=== PATIENT | female | born 1975 | race Caucasian/White ===

== ENCOUNTER → 2021-01-01 08:46 | Outpatient (CLI) | payer OTHER, SELFPAY ==
--- NOTE | ~2021-01-01 | MR_ITS ---
EXAMINATION: MR knee RT wo con DATE: 01/01/2021 09:37 INDICATION: Right knee pain TECHNIQUE: Magnetic resonance imaging (MRI) of the right knee was performed without intravenous contr ast. Sequences included coronal PD-weighted FSE, coronal PD-weighted FS FSE, sagittal T2-weighted FS E, sagittal PD-weighted FS FSE and axial PD weighted fat saturated FSE. COMPARISON: None. FINDINGS: Medial compartment: At least partial thickness radial tear at the lateral aspect of the posterior horn of the medial meni scus which involves at least the one half to two thirds of the meniscal thickness. Deep chondral ulce ration involving greater than 50% the cartilage thickness with chondral surface regularity but withou t degenerative subchondral changes along the anterior weightbearing medial femoral condyle. Similar d eep chondral ulceration with minimal subarticular edema at the medial margin of the medial tibial dipika teau. Lateral compartment: Lateral meniscus is normal. Partial-thickness cartilage loss with smooth chondral surface and without degenerative subchondral changes along the posterior weightbearing lateral femoral condyle. Patellofemoral compartment: Partial-thickness cartilage loss throughout the patellofemoral compartment. There is deep chondral fi ssuring without degenerative subchondral changes at the patellar apical ridge and medial facet as wel l as at the trochlear groove and immediately adjacent medial and lateral trochlea. Ligaments and tendons: Anterior and posterior cruciate ligaments are normal. The medial collateral ligament and fibular andreia ateral ligament complex are normal. The extensor mechanism is normal. The visualized medial and later al hamstring tendons as well as the iliotibial band are normal. Fluid: Small right knee joint effusion. No loose osteochondral bodies identified. Mild synovitis within a 5. 9 x 2.3 x 2.6 cm Murray's cyst. There is an additional small deeper component of the Murray's cyst whic h extends medially across the posterior margin of the weightbearing medial femoral condyle. Osseous/other: Geographic red marrow reexpansion in the metaphyseal region of the distal femur and proximal tibia. N o fracture or pathologic marrow replacing process. Varicose veins along the posterior medial aspect o f the knee. IMPRESSION: 1. Radial tear near the posterior root of the medial meniscus. 2. Tricompartmental osteoarthritis, mild to moderate severity with moderate to high-grade chondromala adalberto in the medial compartment and mild with moderate grade chondromalacia in the lateral and patellof emoral compartments. 3. Small right knee joint effusion and moderate-sized Murray's cyst. Reviewed, dictated and finalized at location B. IMPRESSION: 1. Radial tear near the posterior root of the medial meniscus. 2. Tricompartmental osteoarthritis, mild to moderate severity with moderate to high-grade chondromalacia in the medial compartment and mild with moderate grad e chondromalacia in the lateral and patellofemoral compartments. 3. Small right knee joint effusion and moderate-sized Murray's cyst.
== END ==
PROVIDERS: PCP Internal Medicine; Visit Provider Internal Medicine
DX: M17.11 Unilateral primary osteoarthritis, right knee (principal); M25.461 Effusion, right knee; M71.21 Synovial cyst of popliteal space [Baker], right knee; S83.241A Other tear of medial meniscus, current injury, right knee, initial encounter; X58.XXXA Exposure to other specified factors, initial encounter
CPT/HCPCS: 73721

== ENCOUNTER 2021-05-15 13:36 | Outpatient (CLI) | payer OTHER, SELFPAY ==
--- NOTE | 2021-05-15 13:45 | ECG_ITS ---
Measurements Intervals [place] Rate: 82 P: 41 WA: 159 QRS: 20 QRSD: 87 T: 20 QT: 350 QTc: 409 Interpretive Statements SINUS RHYTHM BORDERLINE R WAVE PROGRESSION, ANTERIOR LEADS BASELINE ARTIFACT- I, II, III, AVR, AVL, AVF BORDERLINE ECG Electronically Signed On 05-15-2021 14:00:26 CDT by Jose Daniel Burnette D.O.
== END 2021-05-15 13:37 | disposition home or self-care (01) ==
PROVIDERS: PCP Internal Medicine; Visit Provider Orthopaedic Surgery
DX: I10 Essential (primary) hypertension (principal); Z01.818 Encounter for other preprocedural examination; R94.31 Abnormal electrocardiogram [ECG] [EKG]
CPT/HCPCS: 93005

== ENCOUNTER 2021-05-19 00:27 | Day surgery (SDC) | payer OTHER, SELFPAY ==
[2021-05-14 16:53] VITALS: BMI 39.4
--- NOTE | 2021-05-18 13:09 | PM.IMHP ---
H&P: HPI History of Present Illness Date/Time: 05/18/21 13:09Pt presents with Right knee pain that has been present since May 2020, after she slipped. She was placed on Meloxicam, which did not provide very much relief. She received an MRI which shows a medial meniscus tear and OA. She received a cortisone injection 02/05/21 which, she states, provided relief for approximately 3-4 days. She is alternating Tylenol/Ibuprofen for her pain. She was informed at her last visit that she may require a right knee arthroscopy. Involved knee: right Onset: gradual Location of pain: medial, anterior and inferior Character: throbbing and shooting Timing of pain: constant Exacerbated by: sitting, weight bearing, kneeling, squatting, stairs and prolonged activity Relieved by: rest and NSAIDs Associated symptoms: Reports swelling and stiffness History of occupational/recreational activity with repetitive motion: No History of prior knee injury: No Chief Complaint: RIGHT KNEE PAIN Review of Systems Review of Systems: All systems reviewed & are unremarkable except as noted in HPI and below PMFSH Past Medical History Medical History Wears glasses Surgical History Surgical History History of History of cholecystectomy Family History Family History Other Hypertension Social History Social History Smoking status: Never smoker Second hand tobacco smoke exposure: No Alcohol intake: current Alcohol use details: very rarely Substance use: never Substance use type: does not use Gender identity (if verbalized by the patient): Female Spiritual care concerns: No Meds Home Medications and Allergies Home Medications Medication Instructions Recorded Confirmed Type chlorhexidine gluconate 4 % 1 applic TOPICAL ONCE #237 ml 03/24/21 Rx topical liquid amlodipine-benazepril 1 cap PO DAILY 05/14/21 05/14/21 History etonogestrel [Nexplanon] 1 implant SUBDERMAL ONCE 05/14/21 05/14/21 History Allergies Allergy/AdvReac Type Severity Reaction Status Date / Time No Known Allergies Allergy Mild Verified 08/19/21 16:49 Exam Extrem: Right lower extremity: normal to inspection, full ROM, normal capillary refill, cyanosis and knee Details: normal to inspection, tenderness Location: of the medial joint line and of the lateral joint line, swelling, abnormal ROM Details: pain with active ROM during and pain with passive ROM during, knee ligament exam normal, Julianna's Test Details: positive medially and laterally and positive medially and crepitus; no abrasions, no lacerations and no ecchymosis Left lower extremity: normal to inspection, normal capillary refill, edema, knee Details: normal to inspection and normal ROM and foot Details: normal capillary refill, normal to inspection, vascular exam Details: dorsalis pedis pulse present, posterior tibial pulse present and normal capillary refill and motor-sensory exam light-touch normal Assessment and Plan Additional Plan VELVET IS HERE FOR F/U OF HER RIGHT KNE MEDIAL MENISCUS TEAR. THE INJECTION WE DID ON HER DID NOT HELP. SHE CONTINUES TO HAVE PAIN AND EXAM SHOWS CONSISTENCY WITH MEDIAL MENISCUS TEAR WELL. HISTORY, EXAM AND RADIOGRAPHS REVIEWED WITH THE PATIENT. REFERRING PHYSICIAN RECORDS AND IMAGES REVIEWED. CONDITION, NATURE, ETIOLOGY AND COURSE OF NATURAL HISTORY REVIEWED. CONSERVATIVE AND OPERATIVE TREATMENT OPTIONS REVIEWED WELL THE RISKS AND BENEFITS OF EACH. I REVIEWED HER MRI AGAIN WHICH SHOWS A MEDIAL MENISCUS ROOT TEAR AND SOME MILD DJD. RECOMMEND RIGHT KNEE SCOPE. DISCUSSED NONOPERATIVE AND OPERATIVE TREATMENT OPTIONS WITH THE PATIENT. THE PATIENT'S QUESTIONS WERE ANSWERED. THE PATIENT DESIRES OPERATIVE TREATMENT. DISCUSSED RYAN
--- NOTE | 2021-05-18 13:49 | WPDANESEPPF ---
Anes - Initial Pre Proc Eval Procedure: Operation Date: 05/19/21 10:30 Proposed Procedures p Right Knee Arthroscopy, Proceed As Indicated - Amarjit Maxwell MD Date/Time: 05/18/21 13:49 Surgeon: Amarjit Maxwell MD Pre Op Diagnosis: right knee medial meniscal tear Patient Data Age: 45 Gender: F Height: 1.63 m Weight: 104.33 kg Allergies Allergy/AdvReac Type Severity Reaction Status Date / Time No Known Allergies Allergy Mild Verified 05/19/21 08:52 Home Medications Medication Instructions Recorded Confirmed Type chlorhexidine gluconate 4 % 1 applic TOPICAL ONCE #237 ml 03/24/21 Rx topical liquid amlodipine-benazepril 1 cap PO DAILY 05/14/21 05/19/21 History etonogestrel [Nexplanon] 1 implant SUBDERMAL ONCE 05/14/21 05/19/21 History Patient hx anesthesia problems: none Family hx anesthesia problems: none PMFSH Past Medical History Medical History (Updated 05/18/21 @ 13:50 by Matt Earl MD) HTN (hypertension) Morbid obesity with BMI of 40.0-44.9, adult Wears glasses Surgical History Surgical History History of History of cholecystectomy Family History Family History Other Hypertension Social History Social History Smoking status: Never smoker Second hand tobacco smoke exposure: No Alcohol intake: current Alcohol use details: very rarely Substance use: never Substance use type: does not use Living arrangements: with family Gender identity (if verbalized by the patient): Female Spiritual care concerns: No Anes - Eval Final PreProcedure Day of Procedure 05/18/21 13:49 Patient weight: obese Heart: regular rate and rhythm Lungs: clear to auscultation and normal air movement Airway: Mallampati scale class II Neurological: alert and oriented Last oral intake: >/= 8 hours ASA classification: III Emergent: no Anesthetic plan: proceed Anesthesia type and monitoring: general LMA Informed Consent: The patient's anesthetic plan and its attendant risks and benefits were discussed with the patient/family/POA. Questions were solicited and answers provided to the satisfaction of the patient/family/POA.
[2021-05-19] VITALS (7 sets, daily range): BP systolic 113–140; BP diastolic 81–88; PULSE 80–88; RESP 18–20; TEMP 36.4–36.6; O2SAT 100
--- NOTE | 2021-05-19 07:23 | WPDHPUPDATE1 ---
History and Physical Update Update Date/Time: 05/19/21 07:23 History and Physical has been reviewed, including an updated exam of the patient. There are NO changes in the patient's condition. Risks, benefits, and alternatives have been discussed and questions answered. Patient agrees to proceed with procedure.
[2021-05-19] MEDS: ACETAMINOPHEN 500 MG TABLET 1000 MG PO (09:02)
[2021-05-19] MEDS: CELECOXIB 200 MG CAPSULE PO (09:02)
[2021-05-19] MEDS: LACTATED RINGERS 1,000 ML 30 ML IV CONT ×2 (09:53→11:47)
[2021-05-19] MEDS: ceFAZolin 2 GM/D5W 50 ML 2 GM/50 ML BAG IVPB (10:11)
[2021-05-19] MEDS: BUPIVACAINE HCL 0.5% PF 30 ML VIAL INFILTRATE (10:45)
--- NOTE | 2021-05-19 12:03 | W.PM.PROC2 ---
Procedure Note - Detailed Date of Procedure 05/19/21 Pre-op Diagnosis right knee medial meniscal tear Post-op Diagnosis same Procedure Performed RIGHT KNEE SCOPE Surgeon Amarjit Maxwell MD Anesthesia general Description of Procedure PATIENT WAS TAKEN TO THE OR. RIGHT LEG WAS PREPPED AND DRAPED STERILE. TROCARS WERE PLACED IN THE USUAL FASHION. CAMERA WAS INTRODUCED. THERE WAS CHONDROMALACIA TO THE PATELLA FEMORAL JOINT. THERE WAS A LOT OF SYNOVITIS IN ALL COMPARTMENTS. THE MEDIAL COMPARTMENT SHOWED CHONDROMALACIA TO THE MEDIAL FEMORAL CONDYLE. A SHAVER WAS USED TO PREFORM A CHONDROPLASTY. THERE WAS A RADIAL TEAR TO THE MEDIAL MENISCUS. THE TEAR WAS RESECTED WITH A BITER AND A SHAVER DOWN TO A SMOOTH BASE. ABOUT 20% OF THE MENISCUS WAS REMOVED. THE ACL WAS INTACT. THE LATERAL MENISCUS WAS NOT TORN. THE LATERAL COMPARTMENT HAD GRADE 2 CHONDROMALACIA AT THE LATERAL PLATEAU. CHONDROPLASTY WAS PREFORMED. A SYNOVECTOMY WAS PREFORMED WELL. THE PATELLO FEMORAL JOINT UNDERWENT CHONDROPLASTY. THERE WAS GRADE 3 CHONDROMALACIA IN MOST OF THE TROCHLEA AND PART OF THE PATELLA. SYNOVECTOMY WAS PREFORMED IN THE SUPERIOR MEDIAL COMPARTMENT. THE WOUNDS WERE APPROXIMATED WITH 4.0 NYLON. STERILE DRESSING WAS APPLIED. PATIENT WAS EXTUBATED. Estimated Blood Loss 5 Complications No immediate complications Condition stable Disposition PACU
[2021-05-19] MEDS: oxyCODONE HCL (*CRX) 5 MG TAB IR PO (12:50)
== END 2021-05-19 13:41 | disposition home or self-care (01) ==
PROVIDERS: PCP Internal Medicine; Visit Provider Orthopaedic Surgery
PROC: (CPT 29870; principal; 2021-05-19 10:30)
DX: M23.231 Derangement of other medial meniscus due to old tear or injury, right knee (principal); M65.861 Other synovitis and tenosynovitis, right lower leg; M22.41 Chondromalacia patellae, right knee; M17.11 Unilateral primary osteoarthritis, right knee; I10 Essential (primary) hypertension; E66.9 Obesity, unspecified; Z68.39 Body mass index [BMI] 39.0-39.9, adult
CPT/HCPCS: 29881; 29876; 93005; A9270; J0690; J1100; J2250; J2405; J2704; J3010; J7120

== ENCOUNTER → 2023-02-18 10:47 | Outpatient (CLI) | payer OTHER, SELFPAY ==
--- NOTE | ~2023-02-18 | MM_ITS ---
EXAMINATION: MM screening lesly BI w john HISTORY: Screening mammogram TECHNIQUE: Craniocaudal and mediolateral oblique 3-D tomosynthesis images were obtained and synthetic 2-D images were generated. CAD analysis was submitted and interpreted. COMPARISON: 03/19/2019 BREAST PARENCHYMAL COMPOSITION: There are scattered areas of fibroglandular density. FINDINGS: No suspicious mass, calcification, or architectural distortion are identified in either kellen ast to suggest malignancy. There has been no suspicious interval change. IMPRESSION: 1. No mammographic evidence of malignancy. 2. Recommend routine screening mammography in one year. BI-RADS Category 1: Negative Reviewed, dictated and finalized at location A.
== END ==
PROVIDERS: PCP Family Medicine; Visit Provider Obstetrics & Gynecology
DX: Z12.31 Encounter for screening mammogram for malignant neoplasm of breast (principal)
CPT/HCPCS: 77063; 77067

== ENCOUNTER 2023-08-03 09:17 | Emergency (ER) | payer OTHER, SELFPAY ==
--- NOTE | 2023-08-03 09:29 | ED.URI ---
HPI - URI/Sore Throat General Chief Complaint: Upper Respiratory Infection Stated Complaint: COUGH/HEADACHE/FEVER/BODY ACHES Time Seen by Provider: 08/03/23 09:29 History of Present Illness HPI Narrative: Patient is a 47-year-old female who presents to urgent care with complaints of headache, cough, fever and body aches. Patient states that it started on Tuesday with a cough and headache and fever yesterday. Patient has been taking Tylenol ibuprofen. Patient denies any nausea or vomiting. States that she was exposed to influenza at a wedding this past weekend. Patient's son has also been ill however all testing was negative. No other acute complaints. No acute distress noted. Patient aware of plan care. Some parts of this dictation were generated by voice recognition software and may contain typographical and/or grammatical inaccuracies. Related Data Home Medications Medication Instructions Recorded Confirmed etonogestrel 68 mg subdermal 1 implant subdermal ONCE 05/14/21 08/03/23 implant (Nexplanon) Allergies Allergy/AdvReac Type Severity Reaction Status Date / Time No Known Allergies Allergy Mild Verified 08/03/23 09:38 Review of Systems Review of Systems: CONSTITUTIONAL: Reports of fever EYES: Denies visual changes, redness, or discharge. ENT: Denies rhinorrhea, congestion, sore throat, or otalgia. CARDIOVASCULAR: Denies chest pain, palpitations, or edema. RESPIRATORY: Reports of cough without dyspnea GASTROINTESTINAL: Denies abdominal pain, nausea, vomiting, or diarrhea. GENITOURINARY: Denies dysuria or hematuria. SKIN: Denies rash or itching. MUSCULOSKELETAL: Denies back pain, joint pain. Reports body NEUROLOGIC: Reports of headache All other systems reviewed are negative, except as documented in HPI. REPLACED BY [facility] Past Medical History Medical History HTN (hypertension) Morbid obesity with BMI of 40.0-44.9, adult Wears glasses Surgical History Surgical History History of History of cholecystectomy Family History Family History Other Hypertension Social History Social History (Updated 10/22/22 @ 11:25 by Pratima Camacho) Smoking status: Never smoker Second hand tobacco smoke exposure: No Alcohol intake: current Alcohol use details: very rarely Substance use: never Substance use type: does not use Lack of Transportation: No Lack of Food: Never True Current Housing: I Have Housing Concerned About Future Housing: No Difficulty Paying Gas/Electric Bills: No Difficulty Paying for Meds: No Currently Unemployed: No Education: High School Diploma/GED Difficulty w/ Childcare or Family Care: No Living arrangements: with family Occupation/Education: occupation Gender identity (if verbalized by the patient): Female Sexual Orientation (if Verbalized by the Patient): Straight or Heterosexual Spiritual care concerns: No Comments At the time of my signature, I reviewed and agree with the nursing past medical, surgical, social, and family history. There is no relevant family history pertinent to the patient complaint. Exam Narrative: GENERAL: This is a well-nourished, well-developed patient, in no apparent distress. HEAD: normocephalic, atraumatic. EYES: PERRL. Sclera clear/white. Vision is grossly intact. EARS: External ears normal, auditory canals clear and without drainage, TMs normal without perforation. Hearing grossly intact. NOSE: External nose normal with no obvious nasal discharge, nares without redness, no rhinorrhea. THROAT: Mucous membranes moist, posterior pharynx clear. Mild postnasal drainage NECK: Neck supple CARDIOVASCULAR: Regular rate and rhythm without murmurs, gallops, or rubs. RESPIRATORY: Clear to auscultation. Breath sounds equal bilaterally. No wheezes, rales, or
[2023-08-03 09:45] VITALS: BP 128/91; PULSE 84; RESP 16; TEMP 36.6; O2SAT 99
== END 2023-08-03 09:43 | disposition home or self-care (01) ==
PROVIDERS: Emergency Provider Nurse Practitioner Family
DX: J10.1 Influenza due to other identified influenza virus with other respiratory manifestations (principal); I10 Essential (primary) hypertension; E66.01 Morbid (severe) obesity due to excess calories; Z68.32 Body mass index [BMI] 32.0-32.9, adult
CPT/HCPCS: 87081; 87804; 87880; 99213; G0463